=== PATIENT | female | born 1995 | race Caucasian/White ===

== ENCOUNTER 2017-11-24 13:10 | Emergency (ER) | payer OTHER ==
[~2017-11-24] VITALS: Ht 170.2 cm; Wt 105.7 kg
[~2017-11-24 13:10] MED LIST: FLEXERIL10 MG PO; FLEXERIL5 MG PO; INDOCIN25 MG PO; LOTEMAX5 ML RIGHT EYE; MOTRIN800 MG PO; NAPROSYN500 MG PO; VALIUM2 MG PO
[2017-11-24 14:15] LABS: HEMATOCRIT 36.2 % (36.0-46.0); HEMOGLOBIN 12.5 G/DL (11.9-15.5); MCH 31.8 PG (29.0-34.0); MCHC 34.5 G/DL (30.0-36.0); MCV 92.1 FL (83-99); PLATELET COUNT 313 K/uL (156-360); RBC DIS.WIDTH-CV 14.1 % (11.8-14.6); RBC DIS.WIDTH-SD 47.9 % (39-53); RED BLOOD COUNT 3.93 M/uL (3.80-5.20); WHITE BLOOD COUNT 9.3 K/uL (4.1-10.2)
[2017-11-24 14:48] LABS: CHLORIDE 107 mEq/L (99-109); POTASSIUM 3.9 mEq/L (3.7-5.4); SODIUM 136 mEq/L (136-147)
[2017-11-24 14:50] LABS: GLUCOSE 106 mg/dL (70-99)
[2017-11-24 14:54] LABS: CREATININE 0.9 mg/dL (0.6-1.3); GFR ESTIMATE (CALCULATED) > 59 mL/min/
[2017-11-24 14:55] LABS: UREA NITROGEN (BUN) 7 mg/dL (9-23)
[2017-11-24] MEDS ORDERED: CLEOCIN300 MG PO (16:28)
[2017-11-24] MEDS ORDERED: ULTRAM50 MG PO (16:41)
[2017-11-24 16:53] VITALS: BP 124/86
== END 2017-11-24 16:53 | disposition left against medical advice (07) ==
LOC: EME 13:10
PROVIDERS: Emergency Medicine
DX: K08.89 Other specified disorders of teeth and supporting structures (principal); L03.211 Cellulitis of face; F17.200 Nicotine dependence, unspecified, uncomplicated; Z88.1 Allergy status to other antibiotic agents
CPT/HCPCS: 70491; 80048; 85027; 99281; 99284

== ENCOUNTER 2018-01-06 07:03 | Inpatient (IN) | payer OTHER ==
[~2018-01-06] VITALS: Ht 170.2 cm; Wt 104.2 kg
[~2018-01-06 07:03] MED LIST changes: +CLEOCIN300 MG PO; +ULTRAM50 MG PO
[2018-01-06] MEDS ORDERED: NORCO 5/3251 TABLET PO (07:37)
[2018-01-06 07:50] LABS: HEMATOCRIT 35.4 % (36.0-46.0); HEMOGLOBIN 12.2 G/DL (11.9-15.5); MCH 31.4 PG (29.0-34.0); MCHC 34.5 G/DL (30.0-36.0); PLATELET COUNT 132 K/uL (156-360); RBC DIS.WIDTH-CV 13.3 % (11.8-14.6); RBC DIS.WIDTH-SD 44.4 % (39-53); RED BLOOD COUNT 3.89 M/uL (3.80-5.20); WHITE BLOOD COUNT 6.4 K/uL (4.1-10.2)
[2018-01-06 08:01] LABS: ALBUMIN 3.6 g/dL (3.2-4.8); CHLORIDE 104 mEq/L (99-109); POTASSIUM 3.5 mEq/L (3.7-5.4); SODIUM 134 mEq/L (136-147)
[2018-01-06 08:03] LABS: GLUCOSE 125 mg/dL (70-99); INTER. NORMALIZED RATIO 1.7
[2018-01-06 08:04] LABS: TOTAL PROTEIN 6.7 g/dL (6.4-8.3)
[2018-01-06 08:06] LABS: TOTAL BILIRUBIN 1.9 mg/dL (0.0-1.0)
[2018-01-06 08:07] LABS: ALKALINE PHOSPHATASE 184 IU/L (3-129); GFR ESTIMATE (CALCULATED) > 59 mL/min/
[2018-01-06 08:08] LABS: UREA NITROGEN (BUN) 7 mg/dL (9-23)
[2018-01-06 08:09] LABS: AST (GOT) 749 IU/L (2-34)
[2018-01-06 08:12] LABS: ALT (GPT) 1588 IU/L (3-49)
[2018-01-06 08:20] LABS: QUANTITATIVE HCG < 4.0 MIU/ML
[2018-01-06 11:34] LABS: APPEARANCE CLOUDY ((CLEAR)); BILIRUBIN NEGATIVE; BLOOD NEGATIVE; COLOR YELLOW ((YELLOW)); GLUCOSE (STRIP) NEGATIVE; KETONES NEGATIVE; LEUKOCYTES TRACE; NITRITE NEGATIVE; PROTEIN (STRIP) NEGATIVE; SPECIFIC GRAVITY 1.008 (1.000-1.030); UROBILINOGEN 0.2 MG/DL (0.2-1.0)
[2018-01-06 12:02] LABS: HEPATITIS B SURFACE ANTIGEN Nonreactive
[2018-01-06 12:04] LABS: ANTI-HEPATITIS A VIRUS (IGM) Nonreactive; ANTI-HEPATITIS B CORE (IGM) Nonreactive
[2018-01-06 12:09] LABS: EPITHELIAL CELLS 3+ /HPF; MUCUS 1+ /LPF; RED BLOOD CELLS NONE SEEN /HPF (0-5); WHITE BLOOD CELLS 0-5 /HPF (0-5)
[2018-01-06 12:10] LABS: BACTERIA RARE /HPF; UCUL ADDED? NO
[2018-01-06 12:11] LABS: AMORPHOUS URATES CRYSTALS 1+
[2018-01-06 12:41] LABS: HEPATITIS C ANTIBODY REACTIVE
[2018-01-06 14:30] VITALS: BP 119/71
[2018-01-06 14:46] LABS: AMYLASE 13 IU/L (1-118); LIPASE 11 U/L (1.0-51.0)
[2018-01-06 14:47] LABS: ACETAMINOPHEN (TYLENOL) < 10 MCG/ML (10-30); SALICYLATE < 3.0 MG/DL (15-30)
[2018-01-06 18:31] LABS: BENZODIAZEPINES, URINE SCREEN Negative (200 ng/mL)
[2018-01-06 18:59] LABS: INTER. NORMALIZED RATIO 1.6
[2018-01-06 19:02] LABS: PTT 38.5 SEC (25-37)
[2018-01-06 19:13] LABS: ALBUMIN 3.3 G/DL (3.2-4.8); ALKALINE PHOSPHATASE 138 IU/L (3-129); AST (GOT) 590 IU/L (2-34); CHLORIDE 108 MEQ/L (99-109); CREATININE 0.8 MG/DL (0.6-1.3); GFR ESTIMATE (CALCULATED) > 59 mL/min/; POTASSIUM 3.9 MEQ/L (3.7-5.4); SODIUM 137 MEQ/L (136-147); TOTAL BILIRUBIN 2.1 MG/DL (0.0-1.0); TOTAL PROTEIN 6.1 G/DL (6.4-8.3); UREA NITROGEN (BUN) 8 mg/dL (9-23)
[2018-01-06 19:15] LABS: ALT (GPT) 1181 IU/L (3-49); GLUCOSE 81 mg/dL (70-99)
[2018-01-06 19:42] VITALS: BP 112/65
[2018-01-06 23:15] VITALS: BP 110/56
[2018-01-07 00:56] LABS: INTER. NORMALIZED RATIO 1.5
[2018-01-07 00:57] LABS: ALBUMIN 3.1 g/dL (3.2-4.8)
[2018-01-07 00:58] LABS: CHLORIDE 109 mEq/L (99-109); POTASSIUM 3.7 mEq/L (3.7-5.4); PTT 38.8 SEC (25-37); SODIUM 137 mEq/L (136-147)
[2018-01-07 01:03] LABS: ALKALINE PHOSPHATASE 153 IU/L (3-129)
[2018-01-07 01:04] LABS: CREATININE 0.8 mg/dL (0.6-1.3); GFR ESTIMATE (CALCULATED) > 59 mL/min/
[2018-01-07 01:05] LABS: AST (GOT) 701 IU/L (2-34); UREA NITROGEN (BUN) 8 mg/dL (9-23)
[2018-01-07 01:19] LABS: ALT (GPT) 1353 IU/L (3-49); GLUCOSE 137 mg/dL (70-99); TOTAL BILIRUBIN 2.4 mg/dL (0.0-1.0); TOTAL PROTEIN 5.6 g/dL (6.4-8.3)
[2018-01-07 04:20] VITALS: BP 99/53
[2018-01-07 06:58] LABS: HEMATOCRIT 37.8 % (36.0-46.0); HEMOGLOBIN 12.2 G/DL (11.9-15.5); MCH 30.5 PG (29.0-34.0); MCHC 32.3 G/DL (30.0-36.0); MCV 94.5 FL (83-99); PLATELET COUNT 122 K/uL (156-360); RBC DIS.WIDTH-CV 13.8 % (11.8-14.6); RBC DIS.WIDTH-SD 48.1 % (39-53); WHITE BLOOD COUNT 4.2 K/uL (4.1-10.2)
[2018-01-07 07:05] LABS: INTER. NORMALIZED RATIO 1.4
[2018-01-07 07:07] LABS: PTT 38.7 SEC (25-37)
[2018-01-07 07:10] VITALS: BP 115/62
[2018-01-07 07:44] LABS: ALBUMIN 3.2 G/DL (3.2-4.8); ALKALINE PHOSPHATASE 160 IU/L (3-129); AST (GOT) 612 IU/L (2-34); CHLORIDE 108 MEQ/L (99-109); GFR ESTIMATE (CALCULATED) > 59 mL/min/; SODIUM 138 MEQ/L (136-147); TOTAL PROTEIN 5.8 G/DL (6.4-8.3); UREA NITROGEN (BUN) 9 mg/dL (9-23)
[2018-01-07 07:52] LABS: ALT (GPT) 1151 IU/L (3-49); GLUCOSE 99 mg/dL (70-99); TOTAL BILIRUBIN 2.7 MG/DL (0.0-1.0)
[2018-01-07 11:45] VITALS: BP 123/70
[2018-01-07 12:30] LABS: INTER. NORMALIZED RATIO 1.5
[2018-01-07 12:32] LABS: PTT 36.2 SEC (25-37)
[2018-01-07 13:05] LABS: ALBUMIN 3.2 G/DL (3.2-4.8); ALKALINE PHOSPHATASE 150 IU/L (3-129); AST (GOT) 557 IU/L (2-34); CHLORIDE 109 MEQ/L (99-109); CREATININE 0.8 MG/DL (0.6-1.3); GFR ESTIMATE (CALCULATED) > 59 mL/min/; GLUCOSE 108 mg/dL (70-99); SODIUM 138 MEQ/L (136-147); TOTAL BILIRUBIN 2.6 MG/DL (0.0-1.0); TOTAL PROTEIN 6.1 G/DL (6.4-8.3); UREA NITROGEN (BUN) 8 mg/dL (9-23)
[2018-01-07 13:12] LABS: ALT (GPT) 1195 IU/L (3-49)
[2018-01-07 15:45] VITALS: BP 118/68
[2018-01-07 19:27] VITALS: BP 120/60
[2018-01-08 00:23] VITALS: BP 115/53
[2018-01-08 07:24] LABS: HEMATOCRIT 35.2 % (36.0-46.0); HEMOGLOBIN 11.5 G/DL (11.9-15.5); MCH 30.3 PG (29.0-34.0); MCHC 32.7 G/DL (30.0-36.0); MCV 92.9 FL (83-99); PLATELET COUNT 132 K/uL (156-360); RBC DIS.WIDTH-CV 13.9 % (11.8-14.6); RBC DIS.WIDTH-SD 47.5 % (39-53); RED BLOOD COUNT 3.79 M/uL (3.80-5.20); WHITE BLOOD COUNT 4.1 K/uL (4.1-10.2)
[2018-01-08 07:32] LABS: INTER. NORMALIZED RATIO 1.4
[2018-01-08 08:00] LABS: ALBUMIN 2.9 G/DL (3.2-4.8); ALKALINE PHOSPHATASE 137 IU/L (3-129); ALT (GPT) 965 IU/L (3-49); AST (GOT) 440 IU/L (2-34); CHLORIDE 112 MEQ/L (99-109); CREATININE 0.8 MG/DL (0.6-1.3); GFR ESTIMATE (CALCULATED) > 59 mL/min/; GLUCOSE 98 mg/dL (70-99); SODIUM 142 MEQ/L (136-147); TOTAL BILIRUBIN 2.8 MG/DL (0.0-1.0); TOTAL PROTEIN 5.6 G/DL (6.4-8.3); UREA NITROGEN (BUN) 5 mg/dL (9-23)
[2018-01-08 08:01] VITALS: BP 110/65
[2018-01-08 15:48] VITALS: BP 118/56
[2018-01-08 20:14] LABS: BENZODIAZEPINES, URINE SCREEN Negative (200 ng/mL)
[2018-01-08 23:38] VITALS: BP 131/72
[2018-01-09 06:09] LABS: INTER. NORMALIZED RATIO 1.2
[2018-01-09 06:31] LABS: HEMATOCRIT 36.8 % (36.0-46.0); HEMOGLOBIN 12.1 G/DL (11.9-15.5); MCH 30.7 PG (29.0-34.0); MCHC 32.9 G/DL (30.0-36.0); MCV 93.4 FL (83-99); PLATELET COUNT 141 K/uL (156-360); RBC DIS.WIDTH-CV 14.3 % (11.8-14.6); RED BLOOD COUNT 3.94 M/uL (3.80-5.20); WHITE BLOOD COUNT 5.1 K/uL (4.1-10.2)
[2018-01-09 06:34] LABS: ALBUMIN 3.2 G/DL (3.2-4.8); ALKALINE PHOSPHATASE 144 IU/L (3-129); AST (GOT) 272 IU/L (2-34); CHLORIDE 111 MEQ/L (99-109); CREATININE 0.9 MG/DL (0.6-1.3); GFR ESTIMATE (CALCULATED) > 59 mL/min/; GLUCOSE 99 mg/dL (70-99); POTASSIUM 4.2 MEQ/L (3.7-5.4); SODIUM 141 MEQ/L (136-147); TOTAL PROTEIN 6.2 G/DL (6.4-8.3); UREA NITROGEN (BUN) 6 mg/dL (9-23)
[2018-01-09 06:36] LABS: TOTAL BILIRUBIN 1.6 MG/DL (0.0-1.0)
[2018-01-09 06:47] LABS: ALT (GPT) 710 IU/L (3-49)
[2018-01-09 07:21] VITALS: BP 118/73
[2018-01-09 08:20] LABS: HCV RNA (LOG IU/mL) 5.9 (())
[2018-01-09] MEDS ORDERED: NICOTINE PATCH1 EAC1 TD (11:37)
[2018-01-09 15:42] LABS: HEPATITIS C GENOTYPE+ 1a (())
[2018-01-09 18:12] LABS: ANTI-SMOOTH MUSCLE (Actin)+ <20 U (<20); MITOCHONDRIAL (M2) ANTIBODIES+ <=20.0 U (<=20.0)
== END 2018-01-09 12:25 | disposition home or self-care (01) | DRG 445 ==
LOC: EME 07:03 → EDOF 13:28 → 5SOUTH 13:28 → 4EAST 13:28 → ENRESERV 13:30 → 4EAST 14:30 → ENRESERV 01-07 12:55 → 5SOUTH 01-07 17:39
PROVIDERS: Emergency Medicine Emergency Medical Services; Hospitalist; Internal Medicine; Internal Medicine Gastroenterology
DX: K81.2 Acute cholecystitis with chronic cholecystitis (principal); B17.10 Acute hepatitis C without hepatic coma; T40.5X1A Poisoning by cocaine, accidental (unintentional), initial encounter; K71.10 Toxic liver disease with hepatic necrosis, without coma; E87.1 Hypo-osmolality and hyponatremia; D69.6 Thrombocytopenia, unspecified; D68.9 Coagulation defect, unspecified; I73.89 Other specified peripheral vascular diseases; E86.0 Dehydration; F14.10 Cocaine abuse, uncomplicated; R59.9 Enlarged lymph nodes, unspecified; E87.6 Hypokalemia; F11.11 Opioid abuse, in remission; F17.210 Nicotine dependence, cigarettes, uncomplicated; Z71.6 Tobacco abuse counseling; Z71.51 Drug abuse counseling and surveillance of drug abuser
CPT/HCPCS: 71046; 74183; 76705; 80053; 80074; 80306 90; 81003; 82140; 82150; 83516 90; 83690; 84132; 84702; 85027; 85610; 85730; 86038; 86256 90; 86664; 86665; 87040; 87522 90; 87902 90; 99281; 99285; G0480; J0295; J1644; J1885; J2543; J3010; J3480; J7040; J7050; S0028

== ENCOUNTER 2018-04-18 04:13 | Inpatient (IN) | payer OTHER ==
[~2018-04-18] VITALS: Ht 167.6 cm; Wt 100.6 kg
[~2018-04-18 04:13] MED LIST changes: +NICOTINE PATCH1 EAC1 TD; +NORCO 5/3251 TABLET PO
[2018-04-18 06:37] LABS: HEMATOCRIT 34.1 % (36.0-46.0); HEMOGLOBIN 11.4 G/DL (11.9-15.5); MCH 29.7 PG (29.0-34.0); MCHC 33.4 G/DL (30.0-36.0); MCV 88.8 FL (83-99); RBC DIS.WIDTH-CV 13.2 % (11.8-14.6); RBC DIS.WIDTH-SD 43.2 % (39-53); RED BLOOD COUNT 3.84 M/uL (3.80-5.20); WHITE BLOOD COUNT 11.2 K/uL (4.1-10.2)
[2018-04-18 07:21] LABS: CHLORIDE 105 MEQ/L (99-109); POTASSIUM 3.7 MEQ/L (3.7-5.4); SODIUM 137 MEQ/L (136-147)
[2018-04-18 07:27] LABS: CREATININE 0.9 MG/DL (0.6-1.3); GFR ESTIMATE (CALCULATED) > 59 mL/min/; GLUCOSE 92 mg/dL (70-99); UREA NITROGEN (BUN) 5 mg/dL (9-23)
[2018-04-18 07:50] LABS: BASOPHIL (%) 0.3 % (0-1); EOSINOPHIL (%) 2.2 % (0-5); EOSINOPHIL COUNT 0.3 K/uL (0-0.3); IMMATURE GRANULOCYTE (%) 0.2 % (0.0-0.7); LYMPHOCYTE (%) 23.9 % (15-42); LYMPHOCYTE COUNT 2.7 K/uL (1.0-2.8); MONOCYTE (%) 8.9 % (3-12); NEUTROPHIL (%) 64.5 % (45-76); NEUTROPHIL COUNT 7.2 K/uL (1.8-6.4); PLATELET COUNT 254 K/uL (156-360)
[2018-04-18 10:23] VITALS: BP 125/56
[2018-04-18 11:14] VITALS: BP 120/59
[2018-04-18 15:33] VITALS: BP 115/61
[2018-04-18 23:37] VITALS: BP 123/64
[2018-04-19 07:49] VITALS: BP 128/79
[2018-04-19 12:00] VITALS: BP 124/63
[2018-04-19 15:04] VITALS: BP 118/56
[2018-04-19 19:48] VITALS: BP 138/84
[2018-04-19 23:44] VITALS: BP 147/80
[2018-04-20 03:21] VITALS: BP 133/75
[2018-04-20 07:37] VITALS: BP 124/86
[2018-04-20] MEDS ORDERED: CLEOCIN300 MG PO (10:45)
== END 2018-04-20 11:51 | disposition home or self-care (01) | DRG 603 ==
LOC: EME 04:13 → EDOF 08:50 → ENRESERV 08:52 → 3EAST 10:14
PROVIDERS: Emergency Medicine
DX: L03.213 Periorbital cellulitis (principal); L03.113 Cellulitis of right upper limb; F11.20 Opioid dependence, uncomplicated; E86.0 Dehydration; B18.2 Chronic viral hepatitis C; F17.210 Nicotine dependence, cigarettes, uncomplicated
CPT/HCPCS: 70481; 80048; 83605; 85025; 87040; 99281; 99284; J1650; J1885; J2405; J7030